=== PATIENT | male | born 1960 | race Caucasian/White ===

== ENCOUNTER 2016-05-19 04:18 | Emergency (ER) | payer OTHER ==
[~2016-05-19] VITALS: Ht 177.8 cm; Wt 72.7 kg
[2016-05-19 04:19] VITALS: BP 116/77; PULSE 90; RESP 18; O2SAT 100
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
[2016-05-19] MEDS ORDERED: Lidocaine 2%-Epi 1:100,000 20 mL Inj ONE (04:34)
[2016-05-19 06:05] VITALS: BP 114/69; PULSE 92; RESP 18; O2SAT 98
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
== END 2016-05-19 06:06 | disposition home or self-care (01) ==
LOC: SED 04:18 → EDBD 04:18 → SED 06:06
DX: S01.81XA Laceration without foreign body of other part of head, initial encounter (principal); V47.5XXA Car driver injured in collision with fixed or stationary object in traffic accident, initial encounter; Y93.89 Activity, other specified; Y92.410 Unspecified street and highway as the place of occurrence of the external cause; Y99.8 Other external cause status; Z88.0 Allergy status to penicillin